=== PATIENT | female | born 1955 | race Caucasian/White ===

== ENCOUNTER 2017-12-13 03:01 | Emergency (ER) | payer OTHER ==
[~2017-12-13] VITALS: Ht 167.6 cm; Wt 118.2 kg
[~2017-12-13 03:01] MED LIST: ASPI81 PO; GLIP5 PO; HYDR25TA PO; LEVO75 PO; METF-960 PO
[2017-12-13 03:14] LABS: GLUCOSE,POINT OF CARE 129 MG/DL (70-110)
[2017-12-13] MEDS ORDERED: HYDR25TA PO (03:28)
[2017-12-13] MEDS ORDERED: LORA10TA7 PO (03:28)
[2017-12-13] MEDS ORDERED: GLIM4 PO (03:28)
[2017-12-13] MEDS ORDERED: RANI150T7 PO (03:28)
[2017-12-13] MEDS ORDERED: GABA-531 PO (03:28)
[2017-12-13] MEDS ORDERED: METF-960 PO (03:28)
[2017-12-13] MEDS ORDERED: LOSA50TA2 PO (03:28)
[2017-12-13] MEDS ORDERED: LEVO100 PO (03:28)
[2017-12-13] MEDS ORDERED: CITA-106 PO (03:28)
[2017-12-13] MEDS ORDERED: ACYC800T5 PO (03:31)
[2017-12-13 03:44] VITALS: BP 132/77
[2017-12-13] MEDS ORDERED: KETOROLAC TROMETHAMINE 30 MG/ML VIAL IM ONE (03:45)
== END 2017-12-13 04:47 | disposition home or self-care (01) ==
LOC: EMS 03:02
DX: B02.9 Zoster without complications (principal); E11.42 Type 2 diabetes mellitus with diabetic polyneuropathy; R07.89 Other chest pain; I10 Essential (primary) hypertension; E78.00 Pure hypercholesterolemia, unspecified; E03.9 Hypothyroidism, unspecified; K21.9 Gastro-esophageal reflux disease without esophagitis; F17.210 Nicotine dependence, cigarettes, uncomplicated; Z79.84 Long term (current) use of oral hypoglycemic drugs
CPT/HCPCS: 82962; 96372; 99283; J1885

== ENCOUNTER 2019-10-17 07:55 | Emergency (ER) | payer MEDICARE, OTHER ==
[~2019-10-17] VITALS: Ht 165.1 cm; Wt 118.2 kg
[~2019-10-17 07:55] MED LIST changes: +ACYC800T5 PO; -ASPI81 PO; +CITA-144 PO; +GABA-1181 PO; +GLIM4 PO; -GLIP5 PO; +HYDR-1475 PO; -HYDR25TA PO; +LEVO100 PO; -LEVO75 PO; +LORA10TA7 PO; +LOSA50TA2 PO; +RANI150T7 PO
[2019-10-17] MEDS ORDERED: INSLAN SQ (08:02)
[2019-10-17] MEDS ORDERED: INSULIN REGULAR, HUMAN 100 UNITS/ML SQ ONE (08:45)
[2019-10-17] MEDS ORDERED: KETOROLAC TROMETHAMINE 60 MG/2 ML VIAL IM ONE (08:45)
[2019-10-17] MEDS ORDERED: ACETAMINOPHEN 500 MG TABLET PO ONE (08:45)
[2019-10-17 08:59] LABS: BASOPHILS % (AUTO) 0.7 % (0.0-2.0); EOSINOPHILS % (AUTO) 1.8 % (1.0-6.0); HEMATOCRIT 37.8 % (36-46); HEMOGLOBIN 12.6 g/dL (12.0-16.0); LYMPHOCYTES # (AUTO) 1.3 K/uL (1.0-4.8); LYMPHOCYTES % (AUTO) 15.6 % (22.0-44.0); MEAN CORPUSCULAR HEMOGLOBIN 28.9 pg (26.0-34.0); MEAN CORPUSCULAR HGB CONC 33.5 G/dL (31.0-37.0); MEAN CORPUSCULAR VOLUME 86 fL (80-100); MONOCYTES # (AUTO) 0.5 K/uL (0.1-1.0); MONOCYTES % (AUTO) 5.7 % (2.0-9.0); NEUTROPHILS # (AUTO) 6.4 K/uL (1.8-7.7); NEUTROPHILS % (AUTO) 76.2 % (40.0-70.0); PLATELET COUNT (AUTO) 211 K/uL (150-450); RED BLOOD CELL COUNT(AUTO) 4.38 MIL/uL (4.00-5.20); RED CELL DISTRIBUTION WIDTH 14.1 % (11.5-14.5)
[2019-10-17 09:12] LABS: CALCIUM, TOTAL 9.1 mg/dL (8.8-10.5); CREATININE 1.59 mg/dL (0.60-1.30); POTASSIUM 4.3 mmol/L (3.5-5.1)
[2019-10-17 10:17] VITALS: BP 151/82
[2019-10-18 07:15] LABS: GLUCOSE,POINT OF CARE 433 MG/DL (70-110)
== END 2019-10-17 10:19 | disposition home or self-care (01) ==
LOC: EMS 08:06
DX: S76.012A Strain of muscle, fascia and tendon of left hip, initial encounter (principal); E11.65 Type 2 diabetes mellitus with hyperglycemia; K21.9 Gastro-esophageal reflux disease without esophagitis; E78.00 Pure hypercholesterolemia, unspecified; I10 Essential (primary) hypertension; F17.210 Nicotine dependence, cigarettes, uncomplicated; Z79.4 Long term (current) use of insulin; X58.XXXA Exposure to other specified factors, initial encounter; Y93.89 Activity, other specified; Y92.89 Other specified places as the place of occurrence of the external cause; Y99.8 Other external cause status
CPT/HCPCS: 36415; 73503; 80048; 82962; 85025; 96372; 99284; J1815; J1885

== ENCOUNTER 2020-11-03 15:58 | Emergency (ER) | payer MEDICARE, OTHER ==
[~2020-11-03] VITALS: Ht 162.6 cm; Wt 104.5 kg
[~2020-11-03 15:58] MED LIST changes: -ACYC800T5 PO; -CITA-144 PO; -HYDR-1475 PO; +HYDR25TA2 PO; +INSLAN SQ; -LORA10TA7 PO; -METF-960 PO
[2020-11-03 17:10] LABS: BASOPHILS % (AUTO) 0.8 % (0.0-2.0); EOSINOPHILS % (AUTO) 4.9 % (1.0-6.0); HEMATOCRIT 33.4 % (36-46); HEMOGLOBIN 10.8 g/dL (12.0-16.0); LYMPHOCYTES # (AUTO) 2.3 K/uL (1.0-4.8); LYMPHOCYTES % (AUTO) 27.8 % (22.0-44.0); MEAN CORPUSCULAR HEMOGLOBIN 28.2 pg (26.0-34.0); MEAN CORPUSCULAR HGB CONC 32.2 G/dL (31.0-37.0); MEAN CORPUSCULAR VOLUME 88 fL (80-100); MONOCYTES # (AUTO) 0.7 K/uL (0.1-1.0); MONOCYTES % (AUTO) 8.2 % (2.0-9.0); NEUTROPHILS # (AUTO) 4.8 K/uL (1.8-7.7); NEUTROPHILS % (AUTO) 58.3 % (40.0-70.0); PLATELET COUNT (AUTO) 228 K/uL (150-450); RED BLOOD CELL COUNT(AUTO) 3.81 MIL/uL (4.00-5.20); RED CELL DISTRIBUTION WIDTH 14.1 % (11.5-14.5)
[2020-11-03 17:21] LABS: CALCIUM, TOTAL 8.5 mg/dL (8.8-10.5); CREATININE 1.51 mg/dL (0.60-1.30)
[2020-11-03 17:29] LABS: ALBUMIN 2.8 g/dL (3.4-5.0); BILIRUBIN,TOTAL 0.1 mg/dL (0.1-1.0); TOTAL PROTEIN, SERUM 6.5 g/dL (6.4-8.2)
[2020-11-03 17:45] VITALS: BP 151/81
== END 2020-11-03 18:34 | disposition home or self-care (01) ==
LOC: EMS 16:01
DX: I12.9 Hypertensive chronic kidney disease with stage 1 through stage 4 chronic kidney disease, or unspecified chronic kidney disease (principal); E11.22 Type 2 diabetes mellitus with diabetic chronic kidney disease; N18.9 Chronic kidney disease, unspecified; E11.65 Type 2 diabetes mellitus with hyperglycemia; E44.0 Moderate protein-calorie malnutrition; R60.0 Localized edema; K21.9 Gastro-esophageal reflux disease without esophagitis; E78.00 Pure hypercholesterolemia, unspecified; F17.210 Nicotine dependence, cigarettes, uncomplicated; Z68.39 Body mass index [BMI] 39.0-39.9, adult; Z79.4 Long term (current) use of insulin
CPT/HCPCS: 80053; 82962; 83880; 84484; 85025; 99283

== ENCOUNTER 2020-11-25 11:28 | Emergency (ER) | payer MEDICARE, OTHER ==
[~2020-11-25] VITALS: Ht 165.1 cm; Wt 90.9 kg
[2020-11-25] MEDS ORDERED: LIDOCAINE 5% TRANSDERMAL PATCH TD ONE (12:00)
[2020-11-25 13:28] VITALS: BP 149/72
== END 2020-11-25 13:51 | disposition home or self-care (01) ==
LOC: EMS 11:28
DX: R07.81 Pleurodynia (principal); E11.9 Type 2 diabetes mellitus without complications; I10 Essential (primary) hypertension; E78.00 Pure hypercholesterolemia, unspecified; E03.9 Hypothyroidism, unspecified; Z79.4 Long term (current) use of insulin; Z79.899 Other long term (current) drug therapy; Z79.84 Long term (current) use of oral hypoglycemic drugs
CPT/HCPCS: 71046; 82962; 99283

== ENCOUNTER 2021-05-03 10:10 | Emergency (ER) | payer MEDICARE, OTHER ==
[~2021-05-03] VITALS: Ht 162.6 cm; Wt 104.0 kg
[2021-05-03 10:37] LABS: BASOPHILS % (AUTO) 0.7 % (0.0-2.0); EOSINOPHILS % (AUTO) 1.2 % (1.0-6.0); HEMATOCRIT 37.6 % (36-46); HEMOGLOBIN 12.3 g/dL (12.0-16.0); LYMPHOCYTES # (AUTO) 1.3 K/uL (1.0-4.8); LYMPHOCYTES % (AUTO) 14.9 % (22.0-44.0); MEAN CORPUSCULAR HEMOGLOBIN 27.6 pg (26.0-34.0); MEAN CORPUSCULAR HGB CONC 32.7 G/dL (31.0-37.0); MEAN CORPUSCULAR VOLUME 85 fL (80-100); MONOCYTES # (AUTO) 0.4 K/uL (0.1-1.0); MONOCYTES % (AUTO) 4.4 % (2.0-9.0); NEUTROPHILS # (AUTO) 7.1 K/uL (1.8-7.7); NEUTROPHILS % (AUTO) 78.8 % (40.0-70.0); PLATELET COUNT (AUTO) 222 K/uL (150-450); RED BLOOD CELL COUNT(AUTO) 4.44 MIL/uL (4.00-5.20); RED CELL DISTRIBUTION WIDTH 14.9 % (11.5-14.5)
[2021-05-03] MEDS ORDERED: MAG HYDROX/AL HYDROX/SIMETH 30 ML SUSP UDCUP PO ONE (10:45)
[2021-05-03] MEDS ORDERED: KETOROLAC TROMETHAMINE 30 MG/ML VIAL IVP ONE (10:45)
[2021-05-03] MEDS ORDERED: FAMOTIDINE 10 MG/ML 2 ML VIAL IVP ONE (10:45)
[2021-05-03] MEDS ORDERED: ONDANSETRON HCL 4 MG/2 ML VIAL IVP ONE (10:45)
[2021-05-03 10:49] LABS: CALCIUM, TOTAL 9.4 mg/dL (8.8-10.5); CREATININE 1.74 mg/dL (0.60-1.30); POTASSIUM 5.3 mmol/L (3.5-5.1)
[2021-05-03 10:55] LABS: ALBUMIN 2.8 g/dL (3.4-5.0); BILIRUBIN,TOTAL 0.3 mg/dL (0.1-1.0)
[2021-05-03] MEDS ORDERED: SODIUM CHLORIDE 0.9% 1,000 ML IV ONE (11:30)
[2021-05-03] MEDS ORDERED: SODIUM CHLORIDE 0.9% 100 ML ONE (11:33)
[2021-05-03] MEDS ORDERED: IOHEXOL 350 MG/ML 150 ML VIAL ONE (11:33)
[2021-05-03 12:07] VITALS: BP 180/83
[2021-05-03 13:41] LABS: BILIRUBIN,URINE NEGATIVE (NEGATIVE); GLUCOSE, URINE (UA) 300-500 mg/dL (NEGATIVE); LEUKOCYTE ESTERASE ,URINE NEGATIVE (NEGATIVE); NITRATE,URINE NEGATIVE (NEGATIVE); OCCULT BLOOD,URINE TRACE (NEGATIVE); PH,URINE 7.5 (5.0-8.0); PROTEIN,URINE 300-600,SEE CONFIRM mg/dL (NEGATIVE); SPECIFIC GRAVITIY, URINE 1.034 (1.003-1.030); UROBILINOGEN,URINE <=1.0 mg/dL (<=1.0)
[2021-05-03 13:50] LABS: APPEARANCE,URINE SLIGHTLY CLOUDY (CLEAR)
[2021-05-03 13:53] LABS: BACTERIA,URINE Many /HPF (None Seen); RBC,URINE 0-2 /HPF (0-2); SQUAMOUS EPITHELIAL CELL,UR Few /LPF (None Seen); SULFOSALICYLIC ACID,URINE 3+ (Negative); WBC,URINE 0-2 /HPF (0-5)
[2021-05-03] MEDS ORDERED: CEPHALEXIN MONOHYDRATE 500 MG CAPSULE PO ONE (14:15)
[2021-05-03] MEDS ORDERED: CEPH500C3 PO (14:15)
== END 2021-05-03 14:31 | disposition home or self-care (01) ==
LOC: EMS 10:10
DX: R82.71 Bacteriuria (principal); R11.2 Nausea with vomiting, unspecified; R10.13 Epigastric pain; I11.0 Hypertensive heart disease with heart failure; I50.9 Heart failure, unspecified; E11.9 Type 2 diabetes mellitus without complications; E78.00 Pure hypercholesterolemia, unspecified; I10 Essential (primary) hypertension; Z79.4 Long term (current) use of insulin
CPT/HCPCS: 36415; 71101; 74177; 80053; 81001; 83690; 85025; 87086; 96361; 96374; 96375; 99285; J1885; J2405; J3490; J7030; J7050; Q9967; 81002

== ENCOUNTER 2022-05-03 14:11 | Inpatient (IN) | payer MEDICARE, OTHER ==
[~2022-05-03] VITALS: Ht 162.6 cm; Wt 125.4 kg
[~2022-05-03 14:11] MED LIST changes: +ACET-66 PO; +AMLO-257 PO; +ASPI-1444 PO; +ATOR40TA71 PO; +CITA-144 PO; -GLIM4 PO; -HYDR25TA2 PO; +LABE100T51 PO; -LOSA50TA2 PO; -RANI150T7 PO; +SODI5POW3 PO
[2022-05-03] MEDS ORDERED: SERT-439 PO (14:47)
[2022-05-03] MEDS ORDERED: LORA10TA7 PO (14:47)
[2022-05-03] MEDS ORDERED: DULA1.5P SQ (14:47)
[2022-05-03] MEDS ORDERED: [UNRECOGNIZED DRUG - CODE] SQ (14:47)
[2022-05-03] MEDS ORDERED: FINE10TA PO (14:47)
[2022-05-03] MEDS ORDERED: CHOL500045 PO (14:47)
[2022-05-03] MEDS ORDERED: EMPA10TA3 PO (14:47)
[2022-05-03] MEDS ORDERED: ENAL2.5T16 PO (14:48)
[2022-05-03] MEDS ORDERED: BUMETANIDE 0.25 MG/ML 4 ML VIAL IVP ONE (15:00)
[2022-05-03 15:03] LABS: COVID AG,FIA SOURCE NASOPHARYNGEAL
[2022-05-03 15:07] LABS: BASOPHILS % (AUTO) 1.1 % (0.0-2.0); EOSINOPHILS % (AUTO) 5.3 % (1.0-6.0); HEMATOCRIT 24.7 % (36-46); HEMOGLOBIN 7.7 g/dL (12.0-16.0); LYMPHOCYTES # (AUTO) 1.1 K/uL (1.0-4.8); LYMPHOCYTES % (AUTO) 16.9 % (22.0-44.0); MEAN CORPUSCULAR HEMOGLOBIN 27.6 pg (26.0-34.0); MEAN CORPUSCULAR HGB CONC 31.2 G/dL (31.0-37.0); MEAN CORPUSCULAR VOLUME 89 fL (80-100); MONOCYTES # (AUTO) 0.5 K/uL (0.1-1.0); MONOCYTES % (AUTO) 7.4 % (2.0-9.0); NEUTROPHILS # (AUTO) 4.3 K/uL (1.8-7.7); NEUTROPHILS % (AUTO) 69.3 % (40.0-70.0); PLATELET COUNT (AUTO) 139 K/uL (150-450); RED CELL DISTRIBUTION WIDTH 18.3 % (11.5-14.5)
[2022-05-03 15:23] LABS: CALCIUM, TOTAL 8.6 mg/dL (8.8-10.5); CREATININE 3.61 mg/dL (0.60-1.30); POTASSIUM 5.3 mmol/L (3.5-5.1)
[2022-05-03 15:29] LABS: ALBUMIN 2.9 g/dL (3.4-5.0); BILIRUBIN,TOTAL 0.3 mg/dL (0.1-1.0); MAGNESIUM 1.8 mg/dL (1.80-2.40); PHOSPHORUS 4.5 mg/dL (2.5-4.9); TOTAL PROTEIN, SERUM 6.7 g/dL (6.4-8.2)
[2022-05-03 15:31] LABS: LACTIC ACID 0.8 mmol/L (0.4-2.0)
[2022-05-03] MEDS ORDERED: EPOETIN ALFA 10,000 UNITS/ML VIAL SQ ONE (16:00)
[2022-05-03] MEDS: SOD FERRIC GLUC COMPLX/SUCROSE 125 MG in SODIUM CHLORIDE 0.9% 100 ML IV SCH (16:38)
[2022-05-03] MEDS ORDERED: DEXTROSE 50%-WATER 25 GM/50 ML SYRINGE IVP PRN (16:45)
[2022-05-03] MEDS ORDERED: ONDANSETRON HCL 4 MG/2 ML VIAL IVP PRN (16:45)
[2022-05-03] MEDS: AmLODIPine BESYLATE 5 MG TABLET PO SCH (17:22)
[2022-05-03] MEDS: CloNIDine HCL 0.1 MG TABLET PO PRN (17:23)
[2022-05-03] MEDS: INSULIN LISPRO 100 UNITS/ML SQ PRN (17:23)
[2022-05-03 20:45] LABS: APPEARANCE,URINE CLEAR (CLEAR); BILIRUBIN,URINE NEGATIVE (NEGATIVE); GLUCOSE, URINE (UA) 300-500 mg/dL (NEGATIVE); KETONES,URINE NEGATIVE (NEGATIVE); LEUKOCYTE ESTERASE ,URINE NEGATIVE (NEGATIVE); NITRATE,URINE NEGATIVE (NEGATIVE); OCCULT BLOOD,URINE NEGATIVE (NEGATIVE); PROTEIN,URINE 100-200,SEE CONFIRM mg/dL (NEGATIVE); SPECIFIC GRAVITIY, URINE 1.008 (1.003-1.030); UROBILINOGEN,URINE <=1.0 mg/dL (<=1.0)
[2022-05-03 21:06] LABS: SULFOSALICYLIC ACID,URINE 1+ (Negative)
[2022-05-03 21:07] LABS: BACTERIA,URINE None Seen /HPF (None Seen); RBC,URINE None Seen /HPF (0-2); SQUAMOUS EPITHELIAL CELL,UR None Seen /LPF (None Seen); WBC,URINE None Seen /HPF (0-5)
[2022-05-03] MEDS: INSULIN GLARGINE,HUM.REC.ANLOG 100 UNITS/ML SQ SCH (21:28)
[2022-05-03] MEDS: DOCUSATE SODIUM 100 MG CAPSULE PO SCH (21:28)
[2022-05-04] VITALS (7 sets, daily range): BP systolic 146–184; BP diastolic 60–75
[2022-05-04] MEDS: NITROGLYCERIN 2% (1 GM=INCH) OINTMENT PACKET TP SCH ×4 (00:52→18:36)
[2022-05-04] MEDS: HEPARIN SODIUM,PORCINE 5,000 UNITS/ML VIAL SQ SCH ×3 (00:52→17:48)
[2022-05-04] MEDS: CloNIDine HCL 0.1 MG TABLET PO PRN (04:50)
[2022-05-04] MEDS: AmLODIPine BESYLATE 5 MG TABLET PO SCH (08:44)
[2022-05-04] MEDS: FAMOTIDINE 20 MG TABLET PO SCH (08:44)
[2022-05-04] MEDS: DOCUSATE SODIUM 100 MG CAPSULE PO SCH ×2 (08:44→20:12)
[2022-05-04] MEDS: ASPIRIN 81 MG CHEWABLE TABLET PO SCH (08:44)
[2022-05-04 12:19] LABS: CALCIUM, TOTAL 8.7 mg/dL (8.8-10.5); CREATININE 3.78 mg/dL (0.60-1.30); POTASSIUM 5.5 mmol/L (3.5-5.1)
[2022-05-04] MEDS: SODIUM ZIRCONIUM CYCLOSILICATE 5 GM POWDER PACKET PO SCH (12:31)
[2022-05-04] MEDS: METOLAZONE 2.5 MG TABLET PO SCH (12:31)
[2022-05-04] MEDS: EMPAGLIFLOZIN 25 MG TABLET PO SCH (12:31)
[2022-05-04 13:01] LABS: GLUCOMETER DEV NAME(LOC) 5N.2C; GLUCOSE,POINT OF CARE 115 MG/DL (70-110)
[2022-05-04 17:26] LABS: GLUCOMETER DEV NAME(LOC) 5S.2C; GLUCOSE,POINT OF CARE 91 MG/DL (70-110)
[2022-05-04] MEDS: BUMETANIDE 0.25 MG/ML 4 ML VIAL IVP SCH ×2 (17:48→20:12)
[2022-05-04] MEDS: SOD FERRIC GLUC COMPLX/SUCROSE 125 MG in SODIUM CHLORIDE 0.9% 100 ML IV SCH (17:49)
[2022-05-04] MEDS: ACETAMINOPHEN 325 MG TABLET PO PRN (17:52)
[2022-05-04 18:17] LABS: GLUCOMETER DEV NAME(LOC) 5S.2C; GLUCOSE,POINT OF CARE 109 MG/DL (70-110)
[2022-05-04] MEDS: INSULIN GLARGINE,HUM.REC.ANLOG 100 UNITS/ML SQ SCH (20:13)
[2022-05-04] MEDS: INSULIN LISPRO 100 UNITS/ML SQ PRN (20:14)
[2022-05-05] VITALS (7 sets, daily range): BP systolic 157–194; BP diastolic 69–78
[2022-05-05] MEDS: HEPARIN SODIUM,PORCINE 5,000 UNITS/ML VIAL SQ SCH ×4 (00:08→23:47)
[2022-05-05] MEDS: GABAPENTIN 100 MG CAPSULE PO SCH ×2 (00:08→21:48)
[2022-05-05] MEDS: NITROGLYCERIN 2% (1 GM=INCH) OINTMENT PACKET TP SCH ×5 (00:17→23:48)
[2022-05-05 01:49] LABS: CREATININE,SERUM FOR CRCL 3.78 mg/dL (0.60-1.30)
[2022-05-05 04:01] LABS: GLUCOMETER DEV NAME(LOC) 5N.2C; GLUCOSE,POINT OF CARE 142 MG/DL (70-110)
[2022-05-05 06:11] LABS: GLUCOMETER DEV NAME(LOC) 5S.2C; GLUCOSE,POINT OF CARE 103 MG/DL (70-110)
[2022-05-05] MEDS: ASPIRIN 81 MG CHEWABLE TABLET PO SCH (08:12)
[2022-05-05] MEDS: AmLODIPine BESYLATE 5 MG TABLET PO SCH ×2 (08:12→21:48)
[2022-05-05] MEDS: DOCUSATE SODIUM 100 MG CAPSULE PO SCH ×2 (08:12→21:00)
[2022-05-05] MEDS: FAMOTIDINE 20 MG TABLET PO SCH (08:13)
[2022-05-05] MEDS: METOLAZONE 2.5 MG TABLET PO SCH (08:13)
[2022-05-05] MEDS: EMPAGLIFLOZIN 25 MG TABLET PO SCH (08:13)
[2022-05-05] MEDS: BUMETANIDE 0.25 MG/ML 4 ML VIAL IVP SCH ×3 (08:13→21:48)
[2022-05-05] MEDS: CloNIDine HCL 0.1 MG TABLET PO PRN (11:46)
[2022-05-05 12:06] LABS: GLUCOMETER DEV NAME(LOC) 5S.2C; GLUCOSE,POINT OF CARE 108 MG/DL (70-110)
[2022-05-05] MEDS ORDERED: SODIUM CHLORIDE 0.9% 250 ML IV ONE (15:34)
[2022-05-05] MEDS ORDERED: LABETALOL HCL 100 MG TABLET PO SCH (16:00)
[2022-05-05] MEDS: SOD FERRIC GLUC COMPLX/SUCROSE 125 MG in SODIUM CHLORIDE 0.9% 100 ML IV SCH (16:26)
[2022-05-05] MEDS: INSULIN LISPRO 100 UNITS/ML SQ PRN (17:14)
[2022-05-05 17:31] LABS: GLUCOMETER DEV NAME(LOC) 5N.2C; GLUCOSE,POINT OF CARE 141 MG/DL (70-110)
[2022-05-05] MEDS: ATORVASTATIN CALCIUM 40 MG TABLET PO SCH (18:49)
[2022-05-05] MEDS ORDERED: GABAPENTIN 100 MG CAPSULE PO SCH (21:00)
[2022-05-05] MEDS: LABETALOL HCL 100 MG TABLET PO SCH (21:49)
[2022-05-05] MEDS: INSULIN GLARGINE,HUM.REC.ANLOG 100 UNITS/ML SQ SCH (21:51)
[2022-05-06 00:51] LABS: GLUCOMETER DEV NAME(LOC) 5N.2C; GLUCOSE,POINT OF CARE 150 MG/DL (70-110)
[2022-05-06 05:12] VITALS: BP 154/56
[2022-05-06] MEDS: NITROGLYCERIN 2% (1 GM=INCH) OINTMENT PACKET TP SCH ×3 (06:18→18:00)
[2022-05-06 07:04] VITALS: BP 151/80
[2022-05-06 07:23] LABS: BASOPHILS % (AUTO) 1.2 % (0.0-2.0); EOSINOPHILS % (AUTO) 5.9 % (1.0-6.0); HEMATOCRIT 24.5 % (36-46); HEMOGLOBIN 7.9 g/dL (12.0-16.0); LYMPHOCYTES # (AUTO) 1.3 K/uL (1.0-4.8); LYMPHOCYTES % (AUTO) 25.4 % (22.0-44.0); MEAN CORPUSCULAR HEMOGLOBIN 28.3 pg (26.0-34.0); MEAN CORPUSCULAR HGB CONC 32.3 G/dL (31.0-37.0); MEAN CORPUSCULAR VOLUME 88 fL (80-100); MONOCYTES # (AUTO) 0.6 K/uL (0.1-1.0); NEUTROPHILS # (AUTO) 2.9 K/uL (1.8-7.7); NEUTROPHILS % (AUTO) 55.5 % (40.0-70.0); PLATELET COUNT (AUTO) 140 K/uL (150-450); RED CELL DISTRIBUTION WIDTH 17.1 % (11.5-14.5)
[2022-05-06 07:50] LABS: CALCIUM, TOTAL 8.8 mg/dL (8.8-10.5); CREATININE 4.09 mg/dL (0.60-1.30); PHOSPHORUS 4.7 mg/dL (2.5-4.9); POTASSIUM 4.5 mmol/L (3.5-5.1)
[2022-05-06] MEDS: DOCUSATE SODIUM 100 MG CAPSULE PO SCH ×2 (08:45→21:25)
[2022-05-06] MEDS: EMPAGLIFLOZIN 25 MG TABLET PO SCH (08:45)
[2022-05-06] MEDS: SODIUM ZIRCONIUM CYCLOSILICATE 5 GM POWDER PACKET PO SCH (08:45)
[2022-05-06] MEDS: FAMOTIDINE 20 MG TABLET PO SCH (08:46)
[2022-05-06] MEDS: BUMETANIDE 0.25 MG/ML 4 ML VIAL IVP SCH ×3 (08:46→21:25)
[2022-05-06] MEDS: ASPIRIN 81 MG CHEWABLE TABLET PO SCH (08:46)
[2022-05-06] MEDS: LABETALOL HCL 100 MG TABLET PO SCH ×2 (08:46→21:26)
[2022-05-06] MEDS: HEPARIN SODIUM,PORCINE 5,000 UNITS/ML VIAL SQ SCH ×2 (08:46→16:00)
[2022-05-06] MEDS: AmLODIPine BESYLATE 5 MG TABLET PO SCH ×2 (08:46→21:25)
[2022-05-06] MEDS: METOLAZONE 2.5 MG TABLET PO SCH (08:46)
[2022-05-06] MEDS: ATORVASTATIN CALCIUM 40 MG TABLET PO SCH (08:46)
[2022-05-06 11:15] VITALS: BP 152/59
[2022-05-06 11:32] LABS: INR 1.1 (0.9-1.1); PROTHROMBIN TIME 11.2 SEC (9.4-11.6)
[2022-05-06] MEDS ORDERED: BUPIVACAINE HCL/PF 0.25% 30 ML VIAL ONE (11:58)
[2022-05-06] MEDS ORDERED: LIDOCAINE/PF 1% 30 ML VIAL ONE (11:58)
[2022-05-06] MEDS ORDERED: GELATIN SPONGE,ABSORBABLE 50 MM TP ONE (11:59)
[2022-05-06] MEDS ORDERED: THROMBIN, BOVINE 20000 UNITS/VIAL POWDER TP ONE (11:59)
[2022-05-06] MEDS ORDERED: SODIUM CHLORIDE 0.9% 1,000 ML ONE ×2 (12:00→13:51)
[2022-05-06] MEDS ORDERED: HEPARIN SODIUM,PORCINE 5,000 UNITS/ML VIAL ONE (12:00)
[2022-05-06 13:17] LABS: GLUCOMETER DEV NAME(LOC) 5N.2C; GLUCOSE,POINT OF CARE 97 MG/DL (70-110)
[2022-05-06 13:17] LABS: GLUCOMETER DEV NAME(LOC) 5N.2C; GLUCOSE,POINT OF CARE 84 MG/DL (70-110)
[2022-05-06] MEDS ORDERED: VANCOMYCIN HCL 1 GM/VIAL ONE (14:13)
[2022-05-06] MEDS: SOD FERRIC GLUC COMPLX/SUCROSE 125 MG in SODIUM CHLORIDE 0.9% 100 ML IV SCH (17:00)
[2022-05-06] MEDS ORDERED: TraMADol HCL 50 MG TABLET PO PRN (18:15)
[2022-05-06 20:03] VITALS: BP 153/63
[2022-05-06] MEDS: INSULIN GLARGINE,HUM.REC.ANLOG 100 UNITS/ML SQ SCH (21:00)
[2022-05-06] MEDS: GABAPENTIN 100 MG CAPSULE PO SCH (21:25)
[2022-05-06] MEDS: ACETAMINOPHEN 325 MG TABLET PO PRN (21:26)
[2022-05-06 23:41] LABS: GLUCOMETER DEV NAME(LOC) 5S.2C; GLUCOSE,POINT OF CARE 137 MG/DL (70-110)
[2022-05-07 00:26] VITALS: BP 162/75
[2022-05-07] MEDS: NITROGLYCERIN 2% (1 GM=INCH) OINTMENT PACKET TP SCH ×4 (00:26→18:06)
[2022-05-07] MEDS: CloNIDine HCL 0.1 MG TABLET PO PRN ×2 (00:33→21:02)
[2022-05-07 06:12] VITALS: BP 146/70
[2022-05-07] MEDS: ACETAMINOPHEN 325 MG TABLET PO PRN ×2 (06:24→21:02)
[2022-05-07] MEDS ORDERED: KETAMINE HCL 50 MG/ML 10 ML VIAL IVP ONE (06:32)
[2022-05-07] MEDS ORDERED: PROPOFOL 1% 20 ML VIAL IVP ONE (06:32)
[2022-05-07] MEDS ORDERED: ONDANSETRON HCL 4 MG/2 ML VIAL IVP ONE (06:32)
[2022-05-07] MEDS ORDERED: LIDOCAINE/PF 2% 5 ML SYRINGE IVP ONE (06:32)
[2022-05-07] MEDS ORDERED: ROCURONIUM BROMIDE 10 MG/ML 5 ML VIAL IVP ONE (06:32)
[2022-05-07] MEDS ORDERED: DiphenhydrAMINE HCL 50 MG/ML VIAL IVP ONE (06:32)
[2022-05-07 06:45] LABS: BASOPHILS % (AUTO) 1.2 % (0.0-2.0); EOSINOPHILS % (AUTO) 4.7 % (1.0-6.0); HEMOGLOBIN 7.7 g/dL (12.0-16.0); LYMPHOCYTES # (AUTO) 1.4 K/uL (1.0-4.8); LYMPHOCYTES % (AUTO) 23.9 % (22.0-44.0); MEAN CORPUSCULAR HEMOGLOBIN 28.7 pg (26.0-34.0); MEAN CORPUSCULAR HGB CONC 32.2 G/dL (31.0-37.0); MEAN CORPUSCULAR VOLUME 89 fL (80-100); MONOCYTES # (AUTO) 0.8 K/uL (0.1-1.0); MONOCYTES % (AUTO) 13.1 % (2.0-9.0); NEUTROPHILS # (AUTO) 3.4 K/uL (1.8-7.7); NEUTROPHILS % (AUTO) 57.1 % (40.0-70.0); PLATELET COUNT (AUTO) 143 K/uL (150-450); RED CELL DISTRIBUTION WIDTH 17.7 % (11.5-14.5)
[2022-05-07 07:04] LABS: CALCIUM, TOTAL 8.8 mg/dL (8.8-10.5); CREATININE 4.32 mg/dL (0.60-1.30); MAGNESIUM 2.1 mg/dL (1.80-2.40); PHOSPHORUS 4.9 mg/dL (2.5-4.9); POTASSIUM 4.9 mmol/L (3.5-5.1)
[2022-05-07] MEDS ORDERED: BUME1TAB34 PO (08:04)
[2022-05-07] MEDS ORDERED: LABE100T51 PO (08:04)
[2022-05-07] MEDS ORDERED: SODI5POW3 PO (08:04)
[2022-05-07 08:08] VITALS: BP 140/54
[2022-05-07] MEDS: EMPAGLIFLOZIN 25 MG TABLET PO SCH (08:28)
[2022-05-07] MEDS: ATORVASTATIN CALCIUM 40 MG TABLET PO SCH (08:28)
[2022-05-07] MEDS: LABETALOL HCL 100 MG TABLET PO SCH ×2 (08:28→21:02)
[2022-05-07] MEDS: METOLAZONE 2.5 MG TABLET PO SCH (08:28)
[2022-05-07] MEDS: AmLODIPine BESYLATE 5 MG TABLET PO SCH ×2 (08:28→21:02)
[2022-05-07] MEDS: ASPIRIN 81 MG CHEWABLE TABLET PO SCH (08:28)
[2022-05-07] MEDS: FAMOTIDINE 20 MG TABLET PO SCH (08:28)
[2022-05-07] MEDS: HEPARIN SODIUM,PORCINE 5,000 UNITS/ML VIAL SQ SCH ×3 (08:28→16:43)
[2022-05-07] MEDS: DOCUSATE SODIUM 100 MG CAPSULE PO SCH ×2 (08:28→21:02)
[2022-05-07 10:16] LABS: GLUCOMETER DEV NAME(LOC) 5N.2C; GLUCOSE,POINT OF CARE 113 MG/DL (70-110)
[2022-05-07] MEDS: BUMETANIDE 0.25 MG/ML 10 ML VIAL IVP SCH ×3 (10:31→21:02)
[2022-05-07 11:36] VITALS: BP 142/60
[2022-05-07] MEDS: INSULIN LISPRO 100 UNITS/ML SQ PRN (12:13)
[2022-05-07 15:13] VITALS: BP 127/58
[2022-05-07] MEDS: SOD FERRIC GLUC COMPLX/SUCROSE 125 MG in SODIUM CHLORIDE 0.9% 100 ML IV SCH (16:43)
[2022-05-07 20:38] VITALS: BP 169/104
[2022-05-07] MEDS: INSULIN GLARGINE,HUM.REC.ANLOG 100 UNITS/ML SQ SCH (21:00)
[2022-05-07] MEDS: GABAPENTIN 100 MG CAPSULE PO SCH (21:05)
[2022-05-08] MEDS: NITROGLYCERIN 2% (1 GM=INCH) OINTMENT PACKET TP SCH ×4 (00:06→17:22)
[2022-05-08 00:20] VITALS: BP 145/52
[2022-05-08 06:21] LABS: GLUCOMETER DEV NAME(LOC) 5S.1B; GLUCOSE,POINT OF CARE 118 MG/DL (70-110)
[2022-05-08 06:21] LABS: GLUCOMETER DEV NAME(LOC) 5S.1B; GLUCOSE,POINT OF CARE 183 MG/DL (70-110)
[2022-05-08 06:21] LABS: GLUCOMETER DEV NAME(LOC) 5S.1B; GLUCOSE,POINT OF CARE 145 MG/DL (70-110)
[2022-05-08 07:08] VITALS: BP 135/57
[2022-05-08 07:21] VITALS: BP 154/61
[2022-05-08 07:23] LABS: CALCIUM, TOTAL 8.7 mg/dL (8.8-10.5); CREATININE 4.86 mg/dL (0.60-1.30); PHOSPHORUS 5.2 mg/dL (2.5-4.9); POTASSIUM 4.6 mmol/L (3.5-5.1)
[2022-05-08 07:24] LABS: HEMOGLOBIN A1C 5.4 % (3.8-5.6)
[2022-05-08] MEDS: HEPARIN SODIUM,PORCINE 5,000 UNITS/ML VIAL SQ SCH ×3 (08:00→16:00)
[2022-05-08 08:06] LABS: GLUCOMETER DEV NAME(LOC) 5N.2C; GLUCOSE,POINT OF CARE 103 MG/DL (70-110)
[2022-05-08] MEDS ORDERED: EMPAGLIFLOZIN 10 MG TABLET PO SCH (09:00)
[2022-05-08] MEDS: DOCUSATE SODIUM 100 MG CAPSULE PO SCH (09:00)
[2022-05-08] MEDS: LABETALOL HCL 100 MG TABLET PO SCH (09:08)
[2022-05-08] MEDS: FAMOTIDINE 20 MG TABLET PO SCH (09:09)
[2022-05-08] MEDS: SODIUM ZIRCONIUM CYCLOSILICATE 5 GM POWDER PACKET PO SCH (09:09)
[2022-05-08] MEDS: BUMETANIDE 0.25 MG/ML 10 ML VIAL IVP SCH ×2 (09:09→17:28)
[2022-05-08] MEDS: ATORVASTATIN CALCIUM 40 MG TABLET PO SCH (09:10)
[2022-05-08] MEDS: AmLODIPine BESYLATE 5 MG TABLET PO SCH (09:10)
[2022-05-08] MEDS: ASPIRIN 81 MG CHEWABLE TABLET PO SCH (09:10)
[2022-05-08] MEDS: METOLAZONE 2.5 MG TABLET PO SCH (09:32)
[2022-05-08] MEDS: ACETAMINOPHEN 325 MG TABLET PO PRN (09:34)
[2022-05-08] MEDS ORDERED: FURO80 PO (11:39)
[2022-05-08 11:59] VITALS: BP 147/91
[2022-05-08] MEDS ORDERED: METO2.5T4 PO (12:01)
[2022-05-08] MEDS: SEVELAMER CARBONATE 800 MG TABLET PO SCH ×2 (13:01→17:22)
[2022-05-08] MEDS ORDERED: INSLAN SQ (15:32)
[2022-05-08 15:44] VITALS: BP 149/65
[2022-05-08] MEDS: SOD FERRIC GLUC COMPLX/SUCROSE 125 MG in SODIUM CHLORIDE 0.9% 100 ML IV SCH (17:21)
[2022-05-08] MEDS ORDERED: FUROSEMIDE 80 MG TABLET PO SCH (21:00)
[2022-05-09 06:01] LABS: GLUCOMETER DEV NAME(LOC) 5S.1B; GLUCOSE,POINT OF CARE 137 MG/DL (70-110)
[2022-05-10 02:46] LABS: GLUCOMETER DEV NAME(LOC) 5N.2C; GLUCOSE,POINT OF CARE 139 MG/DL (70-110)
== END 2022-05-08 20:05 | disposition home or self-care (01) | DRG 252 ==
LOC: EMS 14:20 → 5N 20:50
PROVIDERS: ADMIT Internal Medicine; ATTEND Internal Medicine
PROC: 05LY3ZZ Occlusion of Upper Vein, Percutaneous Approach (ICD-10-PCS; 2022-05-06)
PROC: 031C3ZF Bypass Left Radial Artery to Lower Arm Vein, Percutaneous Approach (ICD-10-PCS; principal; 2022-05-06 16:00)
DX: I13.2 Hypertensive heart and chronic kidney disease with heart failure and with stage 5 chronic kidney disease, or end stage renal disease (principal); I50.31 Acute diastolic (congestive) heart failure; N18.6 End stage renal disease; E44.0 Moderate protein-calorie malnutrition; Z68.42 Body mass index [BMI] 45.0-49.9, adult; I16.0 Hypertensive urgency; E66.01 Morbid (severe) obesity due to excess calories; D63.8 Anemia in other chronic diseases classified elsewhere; E11.22 Type 2 diabetes mellitus with diabetic chronic kidney disease; E87.5 Hyperkalemia; I25.10 Atherosclerotic heart disease of native coronary artery without angina pectoris; E87.6 Hypokalemia; D63.1 Anemia in chronic kidney disease; E55.9 Vitamin D deficiency, unspecified; E11.40 Type 2 diabetes mellitus with diabetic neuropathy, unspecified; Z79.4 Long term (current) use of insulin; E03.9 Hypothyroidism, unspecified; Z79.82 Long term (current) use of aspirin; Z79.899 Other long term (current) drug therapy; Z82.49 Family history of ischemic heart disease and other diseases of the circulatory system; Z83.3 Family history of diabetes mellitus; Z87.441 Personal history of nephrotic syndrome; Z20.822 Contact with and (suspected) exposure to COVID-19
CPT/HCPCS: 71045; 80048; 80053; 81001; 81002; 82550; 82575; 82962; 83036; 83605; 83690; 83735; 83880; 84100; 84484; 85025; 85610; 85730; 93005; 93970; 99291; J0885; J1200; J1644; J1815; J2405; J2704; J2916; J3370; J3490; J7030; J7050; Q9967; 36415-L1; 36415-TC; Z7610

== ENCOUNTER 2024-06-18 22:43 | Emergency (ER) | payer MEDICARE, OTHER ==
[~2024-06-18] VITALS: Ht 165.1 cm; Wt 103.6 kg
[~2024-06-18 22:43] MED LIST changes: +CHOL500045 PO; +DULA1.5P SQ; +FINE10TA PO; +FURO80TA4 PO; +LORA10TA7 PO; +METO2.5T4 PO; +SERT-439 PO; +[UNRECOGNIZED DRUG - CODE] SQ
[2024-06-18 23:23] VITALS: TEMP 98
[2024-06-18 23:34] LABS: HEMATOCRIT 32.7 % (36-46); LYMPHOCYTES # (AUTO) 1.8 K/uL (1.0-4.8)
[2024-06-18 23:41] LABS: COVID AG,FIA SOURCE NASAL SWAB
[2024-06-18 23:47] LABS: ANION GAP 9 mmol/L (8-16); CALCIUM, TOTAL 9.3 mg/dL (8.8-10.5); CARBON DIOXIDE 30 mmol/L (22-29); CHLORIDE 99 mmol/L (98-107); CREATININE 7.81 mg/dL (0.60-1.30); GLOMERULAR FILTR. RATE CALC 5 mL/min (>60); GLUCOSE,RANDOM 138 mg/dL (70-110); POTASSIUM 4.8 mmol/L (3.5-5.1); SODIUM SERUM 138 mmol/L (136-145); UREA NITROGEN, BLOOD 67 mg/dL (7-18)
[2024-06-18 23:47] LABS: SARS-COV2 (COVID) ANTIGEN,FIA Negative (Negative)
[2024-06-18 23:48] LABS: INFLUENZA TYPE A NEGATIVE FOR TYPE A (NEGATIVE); INFLUENZA TYPE B NEGATIVE FOR TYPE B (NEGATIVE)
[2024-06-18 23:49] LABS: BASOPHILS % (AUTO) 1.2 % (0.0-2.0); EOSINOPHILS % (AUTO) 3.2 % (1.0-6.0); LYMPHOCYTES % (AUTO) 21.5 % (22.0-44.0); MEAN CORPUSCULAR HEMOGLOBIN 31.6 pg (26.0-34.0); MEAN CORPUSCULAR HGB CONC 33.6 G/dL (31.0-37.0); MEAN CORPUSCULAR VOLUME 94 fL (80-100); MONOCYTES # (AUTO) 0.8 K/uL (0.1-1.0); MONOCYTES % (AUTO) 10.4 % (2.0-9.0); NEUTROPHILS # (AUTO) 5.2 K/uL (1.8-7.7); NEUTROPHILS % (AUTO) 63.7 % (40.0-70.0); PLATELET COUNT (AUTO) 147 K/uL (150-450); RED BLOOD CELL COUNT(AUTO) 3.48 MIL/uL (4.00-5.20); RED CELL DISTRIBUTION WIDTH 13.4 % (11.5-14.5); WHITE BLOOD COUNT (AUTO) 8.2 K/uL (4.5-11.0)
[2024-06-18 23:57] LABS: LIPASE 82 U/L (16-77); TROPONIN I-HIGH SENSITIVITY 26 ng/L (<51)
[2024-06-19] MEDS: SENNOSIDES 8.6 MG TABLET PO ONE (01:14)
[2024-06-19] MEDS: POLYETHYLENE GLYCOL 3350 17 GM PACKET PO ONE (01:14)
[2024-06-19] MEDS: MELATONIN 3 MG TABLET PO ONE (04:24)
[2024-06-19] MEDS: HydrALAZINE HCL 10 MG TABLET PO ONE (04:25)
[2024-06-19] MEDS: AmLODIPine BESYLATE 5 MG TABLET PO ONE (04:25)
[2024-06-19] MEDS ORDERED: SENN-376 PO (04:26)
[2024-06-19] MEDS ORDERED: POLY17PO47 PO (04:26)
[2024-06-19] MEDS: SODIUM PHOSPHATE,MONO-DIBASIC 133 ML ENEMA PR ONE (04:41)
[2024-06-19 06:37] VITALS: BP 163/70; PULSE 87; RESP 20; O2SAT 98
[2024-06-19] MEDS: LORazepam 2 MG TABLET PO ONE (06:44)
[2024-06-19] MEDS: ACETAMINOPHEN 500 MG TABLET PO ONE (06:45)
== END 2024-06-19 07:53 | disposition left against medical advice (07) ==
LOC: EMS 22:43
DX: K59.00 Constipation, unspecified (principal); E03.9 Hypothyroidism, unspecified; I12.0 Hypertensive chronic kidney disease with stage 5 chronic kidney disease or end stage renal disease; E11.22 Type 2 diabetes mellitus with diabetic chronic kidney disease; N18.6 End stage renal disease; E78.00 Pure hypercholesterolemia, unspecified; Z79.4 Long term (current) use of insulin; Z79.82 Long term (current) use of aspirin; Z79.899 Other long term (current) drug therapy; Z20.822 Contact with and (suspected) exposure to COVID-19
CPT/HCPCS: 74022; 80048; 82962; 83690; 83735; 84484; 85025; 87804; 93005; 99283